=== PATIENT | female | born 2000 | race Caucasian/White ===

== ENCOUNTER 2018-11-22 11:31 | Emergency (ER) | payer OTHER ==
[2018-11-22 12:16] LABS: #Eosinphils 0.1 thou/uL (0.0-0.7); #Lymphocytes 2.3 thou/uL (1.20-3.40); #Monocytes 0.6 thou/uL (0.11-0.59); %Basophils 0.3 % (0.0-1.0); %Eosinophils 0.8 % (0.0-10.0); %Lymphocytes 22.9 % (28.0-48.0); %Monocytes 5.6 % (0.0-4.0); %Neutrophils 70.4 % (31.0-61.0); Hemoglobin 12.6 g/dL (12.0-16.0); Mean Corpuscular HGB CONC 34.5 g/dL (32.0-36.0); Platelet Count 215 thou/uL (130-400)
[2018-11-22 12:44] LABS: ALT (SGPT) Less than 7 U/L (8-55); AST (SGOT) 11 U/L (5-34); Albumin 3.8 g/dL (3.5-5.0); Alkaline Phosphatase 65 U/L (40-150); Anion Gap 11 mmol/L (10-20); BUN (Urea Nitrogen) 8 mg/dL (7.0-18.7); Bilirubin, Total 0.3 mg/dL (0.2-1.2); Calc. Creatinine Clearance 0 mL/min (70-130); Calcium 9.6 mg/dL (7.8-10.44); Carbon Dioxide 26 mmol/L (22-29); Chloride 103 mmol/L (98-107); Estimated GFR-MDRD Greater than 90; Globulin 2.3 g/dL (2.4-3.5); Glucose 79 mg/dL (70-105); Protein, Total 6.1 g/dL (6.0-8.3); Sodium 136 mmol/L (136-145)
[2018-11-22 12:55] LABS: Bilirubin Negative (Negative); Blood, Urine Negative (Negative); Clarity CLEAR (Clear); Glucose, Urine (Dipstick) Negative (Negative); Leukocyte Negative (Negative); Nitrite Negative (Negative); Protein, Urine (Dipstick) Negative (Neg-Trace); Specific Gravity, Urine 1.014 (1.002-1.036); Urobilinogen 0.2 mg/dL (0.2-1.0); pH, Urine 7.5 (5.0-9.0)
--- NOTE | 2018-11-22 14:07 | ULT ---
US [facility] History: Abdominal pain Comparison: Pelvic ultrasound thousand 17 Findings: Real-time grayscale color and spectral analysis of the gravid uterus was performed. Single viable intrauterine with average ultrasound age 14 weeks 0 day with estimated date o f delivery May 23, 2019. The placental margin covers the internal os. Heart rate documented at 160 bpm. Placenta is anterior a nd the presentation is variable. Biparietal diameter: 2.36 cm, 14 weeks 0 day Head circumference: 9.31 cm, 14 week 2 day Abdominal circumference: 17.44 cm, 14 weeks 0 day Femur length: 1.36 similar, 14 weeks 0 day Cervix is closed and measures 4 cm. Impression: Normal single viable intrauterine . Placenta is low and covers internal os. Foll ow-up 20 week anatomy ultrasound recommended.
== END 2018-11-22 16:54 | disposition home or self-care (01) ==
LOC: ERS 11:31
DX: O99.89 Other specified diseases and conditions complicating pregnancy, childbirth and the puerperium (principal); R10.30 Lower abdominal pain, unspecified; Z3A.14 14 weeks gestation of pregnancy
CPT/HCPCS: 36415; 76815; 80053; 81003; 84702; 85025

== ENCOUNTER 2019-01-08 16:25 | Day surgery (SDC) | payer OTHER ==
[2019-01-08] MEDS ORDERED: Lactated Ringer's 1,000 ML IV SCH (17:15)
[2019-01-08 17:27] VITALS: BMI 31.7
--- NOTE | 2019-01-08 18:28 | PDOC.LDPN ---
Labor & Delivery Progress Note - Subjective Subjective: other (Pt presents with c/o possible elevated BP at home. She has h/ o PreE with her last . Reports antepartum course otherwise benign. Pt of Dr. Vigil. Pt reports tachycardia and diarrhea 3-4 times last night. None today. No other sx. ) - Objective Vital signs reviewed and normal: yes Abnormal vital signs: all BPs wnl General: NAD, resting, other (CV: RR after IVF; Resp: unlabored breathing ) Uterine fundus: non tender Other exam findings: FHTs 130s; abd nttp - Assessment (1) 20 weeks gestation of Code(s): Z3A.20 - 20 WEEKS GESTATION OF Current Visit: Yes Status : Acute (2) Diarrhea Code(s): R19.7 - DIARRHEA, UNSPECIFIED Current Visit: Yes Status: Acute -: EKG wnl. Maternal tachycardia resolved with IVF bolus. Reviewed BP parameters for monitoring. D/C home Instructed pt to keep f/u scheduled on 01/24/19. ED warnings reviewed.
== END 2019-01-08 18:30 | disposition home health service (06) ==
LOC: L&D/OP 16:25
PROVIDERS: ATTEND Obstetrics & Gynecology
DX: O99.89 Other specified diseases and conditions complicating pregnancy, childbirth and the puerperium (principal); R03.0 Elevated blood-pressure reading, without diagnosis of hypertension; R00.0 Tachycardia, unspecified; R19.7 Diarrhea, unspecified; Z3A.20 20 weeks gestation of pregnancy
CPT/HCPCS: 93005; 93010; 96360; 96361; 99282

== ENCOUNTER 2019-05-10 05:30 | Inpatient (IN) | payer OTHER ==
--- NOTE | 2019-05-10 00:38 | PDOC.LDHP ---
Labor and Delivery H&P Chief complaint: scheduled induction HPI: 19 y/o at 38 and 0/7 weeks with dx of NITINTN who presents for term medical induction of labor. Current gestational age (weeks): 38 Due date: 05/24/19 Grav: 2 Para: 1 Current complications: hypertension Abnormal US findings: No Current medications: pre-judy vitamins Previous surgical history: none Allergies/Adverse Reactions: Allergies Allergy/AdvReac Type Severity Reaction Status Date / Time No Known Drug Allergies Allergy Verified 01/08/19 17:28 Social history: none - Physical Exam Vital signs reviewed and normal: yes General: NAD, resting Heart: RRR Lungs: CTAB Abdomen: NTTP Extremeties: no edema FHT: category 1 - Assessment L&D Assessment: medically indicated induction - Plan Plan: admit to L&D, cervical ripening
[~2019-05-10 05:30] MED LIST: Carboprost 250 MCG/ML AMP IM PRN; Diphenoxylate HCl/Atropine Tablet PO PRN; Docusate 100 MG CAP PO PRN; HYDROcodone/Acetaminophen 5/325 mg Tablet PO PRN; Ibuprofen 800 MG TAB PO PRN; Lidocaine 1% (PF) 30 ML VIAL SC PRN; Misoprostol 200 MCG TAB PR PRN; NS w/ Oxytocin 10 units 500 ML IV SCH; Ondansetron PF 4 MG/2 ML Vial IVP PRN; Promethazine HCl 25 MG/ML VIAL IM PRN; Zolpidem Tartrate 5 MG TAB PO PRN; hydrALAZINE 20 MG/ML VIAL SLOW IVP PRN
[2019-05-10 06:15] VITALS: BMI 34.1
[2019-05-10] MEDS: Lactated Ringer's 1,000 ML IV SCH ×3 (06:52→20:55)
[2019-05-10] MEDS: Misoprostol 100 MCG TAB VAG SCH ×3 (07:06→20:57)
[2019-05-10 07:12] LABS: Hemoglobin 11.2 g/dL (12.0-16.0); Mean Corpuscular HGB CONC 34.5 g/dL (32.0-36.0); Mean Corpuscular Hemoglobin 30.2 pg (27.0-31.0); Mean Corpuscular Volume 87.7 fL (78.0-98.0); Mean Platelet Volume 8.4 fL (7.4-10.4); Platelet Count 222 thou/uL (130-400); RBC Distribution Width 12.8 % (11.5-14.5); Red Blood Cell (RBC) Count 3.72 mill/uL (4.20-5.40); White Blood Cell (WBC) Count 6.6 thou/uL (4.8-10.8)
[2019-05-10 07:42] LABS: Syphilis Antibody Nonreactive (Nonreactive); Syphilis Antibody Index 0.21 S/CO (<1.00 Non-Reactive)
[2019-05-10 07:46] LABS: HBSAg Index 0.17 S/CO (0-0.99); Hep B Surf Ag Non-Reactive S/CO (NonReactive)
[2019-05-10] MEDS ORDERED: FLU VACC QS2019-20(6MOS UP)/PF 60 MCG/0.5 ML SYRINGE IM ONE (09:00)
[2019-05-10] MEDS: Butorphanol Tartrate 1 MG/ML VIAL SLOW IVP PRN ×2 (11:44→16:55)
[2019-05-10] MEDS ORDERED: Fentanyl 4 mcg/Bup 0.1% Cadd 100 ML ONE (12:53)
[2019-05-10] MEDS ORDERED: Naloxone HCl 0.4 mg/ml Vial IVP PRN ×2 (13:48)
[2019-05-10] MEDS ORDERED: diphenhydrAMINE 50 MG/ML VIAL IVP PRN (13:48)
[2019-05-10] MEDS ORDERED: ePHEDrine/0.9% NaCl/PF SYRINGE 50 mg/10 ml SLOW IVP PRN (13:48)
[2019-05-10] MEDS ORDERED: Lactated Ringer's 500 ML IV PRN (13:48)
[2019-05-10] MEDS ORDERED: Acetaminophen 325 MG TAB PO PRN (13:48)
[2019-05-10] MEDS ORDERED: Promethazine HCl 25 MG/ML VIAL IM PRN (13:48)
[2019-05-10] MEDS ORDERED: Ondansetron PF 4 MG/2 ML Vial IVP PRN (13:48)
[2019-05-10] MEDS ORDERED: Fentanyl 4 mcg/Bupivacaine 0.1% Cassette 100 ML EPIDURAL SCH (14:00)
[2019-05-10] MEDS ORDERED: Communication Order-Pharmacy FS SCH (14:00)
[2019-05-10] MEDS: NS / Oxytocin 40 units/1000ml 1,000 ML IV PRN ×2 (16:35→18:41)
[2019-05-10] MEDS ORDERED: Misoprostol 200 MCG TAB ONE (16:36)
[2019-05-10] MEDS ORDERED: Carboprost 250 MCG/ML AMP ONE (16:37)
--- NOTE | 2019-05-10 16:48 | PDOC.OPDEL ---
OB Operative/Delivery Note Delivery Dr/Surgeon: Ashley Pre-Delivery Diagnosis: active labor, medically indicated induction Procedure/Post Delivery Dx: spontaneous vaginal delivery Anesthesia: epidural - Additional Findings/Plan Placenta delivered: spontaneous Repaired Obstetrical Laceration: 2nd degree Estimated blood loss: EBL= 400 cc, QBL pending Compilations/Other Findings: Called to LDR. Terminal bradycardia seen with pt. c/o urged to push. over 2* MLE x 1 push. Viable, vigorous male, Apgars 9/9. Placenta intact Precious. Atony noted, tx. with massage, pit drip and Cytotec 800 pr with good effect. Repaired with 2-0 chromic in layers w/o difficulty. Post delivery plan: routine recovery
[2019-05-10] MEDS ORDERED: Butorphanol Tartrate 1 MG/ML VIAL ONE (16:53)
[2019-05-10] MEDS ORDERED: Tranexamic Acid 1,000 MG/10 ML VIAL ONE (16:59)
[2019-05-10] MEDS ORDERED: Penicillin G Potassium 5 MILL.UNITS VIAL ONE (18:13)
[2019-05-10] MEDS ORDERED: Benzocaine-Menthol 82.5 ML CAN TOP PRN (21:10)
[2019-05-10] MEDS: Ibuprofen 800 MG TAB PO SCH (22:50)
[2019-05-11] MEDS: Ibuprofen 800 MG TAB PO SCH ×4 (00:47→22:14)
[2019-05-11] MEDS: Lactated Ringer's 1,000 ML IV SCH ×3 (05:18→17:03)
--- NOTE | 2019-05-11 13:22 | PDOC.PP ---
Post Progress Note Post Day #: 1 PO intake tolerated: yes Flatus: yes Ambulation: yes Vital Signs (12 hours) Temp Pulse Resp BP Pulse Ox 05/11/19 12:10 99.0 F 88 12 112/68 98 05/11/19 07:16 98.0 F 91 12 117/56 L 99 05/11/19 04:15 98.2 F 76 16 111/71 Weight Weight 169 lb - Physical Examination General: NAD Cardiovascular: no m/r/g, RRR Respiratory: clear to auscultation bilaterally Abdominal: + bowel sounds, lochia, no distention Extremities: negative homans (B) Neurological: no gross focal deficits Psychiatric: A&Ox3, normal affect (DC to home) Result Diagrams: 05/10/19 06:45 Additional Labs: Post Labs Blood Type A POSITIVE 05/10/19 06:45 Hep Bs Antigen Non-Reactive S/CO (NonReactive) 05/10/19 06:45
[2019-05-12] MEDS: Ibuprofen 800 MG TAB PO SCH (06:44)
[2019-05-12 08:03] VITALS: BP 122/77; TEMP 98.2
== END 2019-05-12 12:30 | disposition home or self-care (01) | DRG 807 ==
LOC: L&D 05:33 → 3SW 19:53
PROVIDERS: ADMIT Obstetrics & Gynecology; ATTEND Obstetrics & Gynecology
PROC: 10E0XZZ Delivery of Products of Conception, External Approach (ICD-10-PCS; principal; 2019-05-10)
PROC: 0KQM0ZZ Repair Perineum Muscle, Open Approach (ICD-10-PCS; 2019-05-10)
PROC: 3E0P7VZ Introduction of Hormone into Female Reproductive, Via Natural or Artificial Opening (ICD-10-PCS; 2019-05-10)
PROC: 3E033VJ Introduction of Other Hormone into Peripheral Vein, Percutaneous Approach (ICD-10-PCS; 2019-05-10)
PROC: 3E02340 Introduction of Influenza Vaccine into Muscle, Percutaneous Approach (ICD-10-PCS; 2019-05-10)
DX: O10.02 Pre-existing essential hypertension complicating childbirth (principal); Z37.0 Single live birth; O99.89 Other specified diseases and conditions complicating pregnancy, childbirth and the puerperium; O70.1 Second degree perineal laceration during delivery; O62.2 Other uterine inertia; R00.1 Bradycardia, unspecified; Z3A.38 38 weeks gestation of pregnancy; Z23 Encounter for immunization
CPT/HCPCS: 36416; 51702; 85027; 86780; 86850; 86900; 86901; 87340; 90471; 90686; G0008; J0595; J2405; J2540; J2590; J3490

== ENCOUNTER 2019-05-14 18:23 | Emergency (ER) | payer OTHER ==
[2019-05-14] MEDS ORDERED: Metoclopramide HCl 10 MG/2 ML VIAL ONE (20:53)
--- NOTE | 2019-05-14 21:49 | CT ---
CT BRAIN NONCONTRAST: DATE: 05/14/2019 HISTORY: 19-year-old female with headache FINDINGS: There is no evidence of acute intra-axial or extra-axial hemorrhage. There is no midline shift or any other mass effect. There is no extra-axial fluid collection. The ventricles are normal in size and configuration. The tympanomastoid cavities, and the upper portions of the paranasal sinuses included in these images, are grossly clear. Calvarium is intact. IMPRESSION: Normal.
[2019-05-14 21:57] LABS: #Eosinphils 0.2 thou/uL (0.0-0.7); #Lymphocytes 2.2 thou/uL (1.20-3.40); #Monocytes 0.7 thou/uL (0.11-0.59); #Neutrophils 5.6 thou/uL (1.40-6.50); %Basophils 0.4 % (0.0-1.0); %Eosinophils 1.8 % (0.0-10.0); %Lymphocytes 25.2 % (21.0-51.0); %Monocytes 7.8 % (0.0-10.0); %Neutrophils 64.8 % (42.0-75.0); Mean Corpuscular HGB CONC 32.4 g/dL (32.0-36.0); Mean Corpuscular Hemoglobin 29.2 pg (27.0-31.0); Mean Corpuscular Volume 90.3 fL (78.0-98.0); Mean Platelet Volume 8.5 fL (7.4-10.4); Platelet Count 267 thou/uL (130-400); RBC Distribution Width 12.5 % (11.5-14.5); Red Blood Cell (RBC) Count 3.75 mill/uL (4.20-5.40); White Blood Cell (WBC) Count 8.7 thou/uL (4.8-10.8)
[2019-05-14 22:11] LABS: ALT (SGPT) 9 U/L (8-55); AST (SGOT) 15 U/L (5-34); Albumin 3.7 g/dL (3.5-5.0); Alkaline Phosphatase 122 U/L (40-110); Anion Gap 10 mmol/L (10-20); BUN (Urea Nitrogen) 9 mg/dL (7.0-18.7); Bilirubin, Total 0.3 mg/dL (0.2-1.2); Calc. Creatinine Clearance 0 mL/min (70-130); Calcium 9.7 mg/dL (7.8-10.44); Carbon Dioxide 28 mmol/L (22-29); Chloride 105 mmol/L (98-107); Estimated GFR-MDRD Greater than 90; Globulin 2.4 g/dL (2.4-3.5); Glucose 73 mg/dL (70-105); Potassium 3.9 mmol/L (3.5-5.1); Protein, Total 6.1 g/dL (6.0-8.3); Sodium 139 mmol/L (136-145)
[2019-05-14 22:30] LABS: Creatinine, Urine 46.8 mg/dL (47-110)
[2019-05-14 22:32] LABS: Bacteria/HPF 3+ HPF (None Seen); Bilirubin Negative (Negative); Blood, Urine 3+ (Negative); Clarity Turbid (Clear); Glucose, Urine (Dipstick) Normal (Negative); Leukocyte 500 Leu/uL (Negative); Mucous/LPF Rare LPF (<2+); Nitrite Negative (Negative); Protein, Urine (Dipstick) 50 mg/dL (Neg-Trace); RBC/HPF 21-50 HPF (0-3); Urobilinogen Normal mg/dL (Less than 2); WBC/HPF Greater than 50 HPF (0-3)
[2019-05-14] MEDS ORDERED: Ketorolac Tromethamine 30 MG/ML VIAL ONE (22:57)
== END 2019-05-14 23:25 | disposition home or self-care (01) ==
LOC: ERS 18:23
DX: R51 Headache (principal)
CPT/HCPCS: 70450; 80053; 81003; 81015; 82570; 84156; 85025; 96374; 96375; J1885; J2765

== ENCOUNTER 2019-10-04 22:04 | Emergency (ER) | payer OTHER, SELFPAY | END 2019-10-04 22:54 | disposition home or self-care (01) | LOC: ERS 22:04 | DX: L29.2 Pruritus vulvae (principal); F17.290 Nicotine dependence, other tobacco product, uncomplicated | CPT/HCPCS: 99281 ==